=== PATIENT | female | born 1970 | race African-American/Black ===

== ENCOUNTER 2020-04-07 06:44 | Inpatient (IN) | payer OTHER ==
[2020-04-07] VITALS (8 sets, daily range): BP systolic 134–158; BP diastolic 64–93
[~2020-04-07] VITALS: Ht 157.5 cm; Wt 127.5 kg
[2020-04-07 08:14] LABS: ABSOLUTE NEUTROPHILS 4.5 thou/uL (1.4-8.2); BASOPHILS 1.1 % (0.0-2.0); EOSINOPHILS 2.1 % (0.0-3.0); HEMATOCRIT 37.7 % (37.0-47.0); HEMOGLOBIN 12.2 gm/dL (12.0-15.0); LYMPHOCYTES 31.6 % (24.0-44.0); MCH 27.1 pg (26.0-34.0); MCHC 32.4 g/dL (28.0-37.0); MCV 83.7 fL (80.0-100.0); MONOCYTES 7.2 % (1.0-8.0); PLATELET COUNT 269 thou/uL (150-400); RBC 4.51 mil/uL (4.20-5.00); WBC 7.7 thou/uL (4.0-11.0)
[2020-04-07 08:47] LABS: ALBUMIN 2.9 g/dL (3.4-5.0); ANION GAP 9 mmol/L (7-16); BUN 11 mg/dL (7-18); CALCIUM 8.8 mg/dL (8.5-10.1); CHLORIDE 104 mmol/L (98-107); CO2 28 mmol/L (21-32); CREATININE 1.1 mg/dL (0.6-1.0); GLUCOSE 169 mg/dL (74-106); SGOT 12 U/L (15-37); SGPT 9 U/L (30-65); SODIUM 141 mmol/L (136-145); TOTAL BILIRUBIN 0.4 mg/dL (0.2-1.0); TOTAL PROTEIN 7.7 g/dL (6.4-8.2); TROPONIN-I <0.06 ng/mL (<0.06)
[2020-04-07 08:53] LABS: POTASSIUM 2.6 mmol/L (3.5-5.1)
[2020-04-07] MEDS ORDERED: XANAX1 MG PO (10:19)
[2020-04-07] MEDS ORDERED: AMBIEN 10 MG TA10 MG PO (10:19)
[2020-04-07] MEDS ORDERED: CATAPRES-TTS 20.2 MG TRANSDERM (10:20)
[2020-04-07] MEDS ORDERED: AMLODIPINE BESY10 MG PO ×2 (10:20→16:28)
[2020-04-07] MEDS ORDERED: PLAVIX 75 MG TA75 MG PO (10:21)
[2020-04-07] MEDS ORDERED: CARVEDILOL12.5 MG PO (10:21)
[2020-04-07] MEDS ORDERED: HYDRALAZINE HC100 MG PO ×3 (10:21→16:27)
[2020-04-07] MEDS ORDERED: BUSPIRONE HCL10 MG PO (10:22)
--- NOTE | 2020-04-07 11:37 | EKG ---
[facility] [place] [address] ELECTROCARDIOGRAM REPORT Name: ZEHRA OVALLES Room #: 170-2 ADM IN M.R.#: [id number] Admission: 04/07/20 Attend Phys: Gina Joseph MD Discharge: Date of : 74 Report #: [id number] THIS REPORT FOR: cc: FAM - Family physician unknown FAM - Family physician unknown Ezequiel Murrell MD [facility] THIS REPORT FOR: //name// [facility] ED Test Date: 2020-04-07 Test Time: 06:55:24 Pat Name: ZEHRA OVALLES Department: Room: 170 2 Gender: F [employer]: [place] : 1970 Requested By: Gina Joseph Order Number: [id number] MD: Ezequiel Murrell Measurements Intervals [place] Rate: 59 P: 37 KS: 156 QRS: 13 QRSD: 115 T: 10 QT: 416 QTc: 413 Interpretive Statements Sinus rhythm Probable left ventricular hypertrophy Anterior Q waves, possibly due to LVH No previous ECG available for comparison Electronically Signed On 04-07-2020 11:37:05 CDT by Ezequiel Murrell [email or web address] <ELECTRONICALLY SIGNED> By: Ezequiel Murrell MD, FAC 04/07/20 1137 [id number] Ezequiel Murrell MD, [facility] /EPI
[2020-04-07 13:23] LABS: POTASSIUM 3.3 mmol/L (3.5-5.1); TROPONIN-I <0.06 ng/mL (<0.06)
--- NOTE | 2020-04-07 16:23 | NUR ---
REC PT FROM [facility] [employer]. SHE'S A&OX4, C/O PAIN AT BOTH SITES AND HER 'USUAL' CHEST PAIN X 5DAYS, NO INTERVENTIONS DONE PER REPORT, RADIAL BAND, RELEASING 2ML AIR EVERY 15 MINUTES. NORMALLY AMB INDEPENDENTLY, R GROIN WAS ACCESSED X 3 UNSUCCESSFFULY PER REPORT, PT REPORTS SHE WAS SO SCARED DURING THE PROCEDURE. SEE SEPARATE INTERVENTIONS FOR ASSESSMENT. WILL DO ADMISSION AND ENSURE HER USUAL MEDS ARE STARTED. 17:00 OKAY TO BE UP PER CC LAB AND 1800 RADIAL ARM BAND SHOULD BE DONE
[2020-04-07] MEDS ORDERED: HYDROCODON-ACE1 EAC5 PO (16:28)
[2020-04-07] MEDS ORDERED: SPIRONOLACTONE25 MG PO (16:30)
--- NOTE | 2020-04-07 18:42 | NUR ---
PHYSICIANS MAY BE PUTTING IN DUPLICATE ORDERS, COMM W/DR. VASQUEZ SHE SAID CANCEL NPO ORDER. WILL LET PHYSICIANS ORDER WHATEVER IS NEEDED AND ALERT NIGHT RN. PT ALREADY HAD CV-19 TEST TODAY BEFORE PROCEDURE. PT IN [employer] JUST WANTS HER PAIN MEDICATION AND XANAX CONTINUED, COMM X2 TO HOSPITALIST WHO WILL REVIEW MEDICATIONS. KILLIAN HAS OLD BLOOD FROM PRIOR TO ADMISSION TO FLOOR, R GROIN SITE CDI; SHE DID HAVE SOME OLD BLOOD THAT HAD POOLED IN THIGH CREASE AND WHEN SHE FINALLY MOVED, IT MOVED DOWN HER LEG AND MADE HER FEEL IF SHE WAS BLEEDING. ALL WELL. SHE USES CALL LIGHT FOR NEEDS
[2020-04-08 04:44] LABS: ABSOLUTE NEUTROPHILS 3.8 thou/uL (1.4-8.2); BASOPHILS 0.6 % (0.0-2.0); EOSINOPHILS 1.9 % (0.0-3.0); HEMATOCRIT 39.4 % (37.0-47.0); HEMOGLOBIN 12.6 gm/dL (12.0-15.0); LYMPHOCYTES 35.4 % (24.0-44.0); MCH 27.1 pg (26.0-34.0); MCHC 31.9 g/dL (28.0-37.0); PLATELET COUNT 269 thou/uL (150-400); POLYS 56.1 % (36.0-66.0); RBC 4.64 mil/uL (4.20-5.00); RDW 18.3 % (10.5-14.5); WBC 6.8 thou/uL (4.0-11.0)
[2020-04-08 04:45] VITALS: BP 155/91
[2020-04-08 05:23] LABS: ANION GAP 8 mmol/L (7-16); BUN 12 mg/dL (7-18); CALCIUM 8.5 mg/dL (8.5-10.1); CHLORIDE 101 mmol/L (98-107); CHOLESTEROL 213 mg/dL (<200); CO2 29 mmol/L (21-32); CREATININE 1.2 mg/dL (0.6-1.0); GLUCOSE 97 mg/dL (74-106); HDL CHOLESTEROL 38 mg/dL (>40); LDL CHOLESTEROL 152 mg/dL (<100); MAGNESIUM 1.9 mg/dL (1.8-2.4); PHOSPHORUS 2.5 mg/dL (2.5-4.9); SODIUM 138 mmol/L (136-145); TC:HDL 5.6 Ratio (Not establshd); TRIGLYCERIDE 119 mg/dL (<150); VLDL 24 mg/dL (<40)
[2020-04-08 05:25] LABS: SERUM ASSESSMENT Clear
--- NOTE | 2020-04-08 05:43 | NUR ---
PT WITH C/O INCISIONAL PAIN FROM RIGHT GROIN AND WRIST, PRN MEDS GIVEN NEEDED, PT NPO FOR ABD US THIS AM, IV FLUIDS INFUSING IN R UPPER ARM IV, PT UP ADLIB TO BR, WILL CON'T TO MONITOR PER PPOC.
[2020-04-08 09:20] VITALS: BP 140/62
--- NOTE | 2020-04-08 15:06 | NUR ---
AAOX4. PLEASANT. PAIN CONTROL AN ISSUE; DR. VASQUEZ INCREASED HER PAIN MEDICATION. SR/ST WITH OCCASIONAL PAC'S PER TELE. IV SITE CHANGED. FALL PRECAUTIONS IN PLACE.
[2020-04-08 17:00] VITALS: BP 138/71
--- NOTE | 2020-04-08 20:04 | 2DMMODE ---
[facility] [place] [address] 2 D/M-MODE ECHOCARDIOGRAM Name: JAYLON OVALLESN Boaz Room #: 219-P ADM IN ..#: [id number] Admission: 04/07/20 Attend Phys: Gina Joseph MD Discharge: Date of : 74 Report #: [id number] THIS REPORT FOR: cc: FAM - Family physician unknown FAM - Family physician unknown Jason Muhammad MD ~ APPROVED REPORT Study performed: 04/08/2020 16:02:09 EXAM: Comprehensive 2D, Doppler, and color-flow Echocardiogram Patient Location: In-Patient Room #: 219 Status: routine BSA: 2.29 HR: 54 bpm BP: 130/80 mmHg Rhythm: NSR Other Information Study Quality: Technically Limited Risk Factors: Cardiac Risk Factors: HTN Indications Chest Pain 2D Dimensions RVDd: 37.16 mm IVSd: 11.92 (7-11mm) LVOT Diam: 17.99 (18-24mm) LVDd: 44.23 mm PWd: 16.50 (7-11mm) Ascending Ao: 24.40 (22-36mm) LVDs: 19.37 (25-40mm) Left Atrium: 39.29 (27-40mm) Aortic Root: 25.21 mm Volumes Left Atrial Volume (Systole) Single Plane 4CH: 50.47 mL Single Plane 2CH: 67.29 mL Aortic Valve AoV Peak Tim.: 2.25 m/s AO Peak Gr.: 20.18 mmHg [facility] [address] [place] [address] 2 D/M-MODE ECHOCARDIOGRAM Name: OVALLESZEHRA Room #: 219-P [facility] IN [facility].#: [id number] Admission: 04/07/20 Attend Phys: Gina Joseph, Discharge: Date of : 74 Report #: [id number] Mean Gr.: 9.90 mmHg AO V2 Mean: 1.46 m/s AO V2 VTI: 52.99 cm Mitral Valve E/A Ratio: 1.0 MV Decel. Time: 262.18 ms MV E Max Tim.: 1.10 m/s MV A Tim.: 1.05 m/s MV PHT: 76.03 ms Pulmonary Valve WA End Vmax: 1.07 m/s Tricuspid Valve TR Peak Tim.: 3.13 m/s TR Peak Gr.: 39.16 mmHg Left Ventricle The left ventricle is normal size. Mild to moderate concentric left ventricular hypertrophy. The left ventricular systolic function is normal. The left ventricular ejection fraction is within the normal range. LVEF is 60-65%. Right Ventricle The right ventricle is normal size. The right ventricular systolic function is normal. Atria Left atrium is borderline dilated. The right atrium size is normal. Aortic Valve The aortic valve is normal in structure. No aortic regurgitation is present. There is no aortic valvular stenosis. Mitral Valve The mitral valve is normal in structure. Trace to mild mitral regurgitation. No evidence of mitral valve stenosis. Tricuspid Valve The tricuspid valve is normal in structure. Trace tricuspid regurgitation. Estimated PAP 44-49 mmHg. Pulmonic Valve The pulmonary valve is normal in structure. Trace pulmonic [facility] [address] [place] [address] 2 D/M-MODE ECHOCARDIOGRAM Name: ZEHRA OVALLES Room #: 219-P [facility] IN [facility]#: [id number] Admission: 04/07/20 Attend Phys: Gina Joseph, Discharge: Date of : 74 Report #: [id number] regurgitation. Great Vessels The aortic root is normal in size. IVC is normal in size and collapses >50% with inspiration. Pericardium There is no pericardial effusion. <Conclusion> The left ventricle is normal size. LVEF is 60-65%. Left atrium is borderline dilated. The aortic valve is normal in structure. The mitral valve is normal in structure. Trace to mild mitral regurgitation. The tricuspid valve is normal in structure. Trace tricuspid regurgitation. Estimated PAP 44-49 mmHg. The pulmonary valve is normal in structure. Trace pulmonic regurgitation. There is no pericardial effusion. <ELECTRONICALLY SIGNED> By: Jason Muhammad MD 04/08/202003 03 Jagdeep Muhammad MD /INF
[2020-04-08 20:30] VITALS: BP 155/77
--- NOTE | 2020-04-09 03:54 | NUR ---
PT AMBULATING INDEPENDENTLY AND IS TOLERATING WELL. LORTAB PROVIDING PAIN RELIEF. REFUSING PIPIDA SCAN SCHEDULED FOR 04/10. RESTING COMFORTABLY. NO NEEDS VOICED. CALL LIGHT WITHIN REACH. FREQUENT OBSERVATION.
[2020-04-09 05:00] VITALS: BP 132/65
[2020-04-09 08:40] VITALS: BP 156/81
[2020-04-09 12:45] VITALS: BP 131/67
[2020-04-09 12:57] LABS: CALCIUM 8.7 mg/dL (8.5-10.1); CREATININE 0.9 mg/dL (0.6-1.0); POTASSIUM 3.5 mmol/L (3.5-5.1)
[2020-04-09 14:15] LABS: ALBUMIN 3.3 g/dL (3.4-5.0); DIRECT BILIRUBIN < 0.1 mg/dL (<0.1-0.2); SGOT 16 U/L (15-37); SGPT 10 U/L (30-65); TOTAL BILIRUBIN 0.3 mg/dL (0.2-1.0)
[2020-04-09 16:25] VITALS: BP 124/58
[2020-04-09 20:00] VITALS: BP 1302/70
[2020-04-10 03:16] VITALS: BP 148/51
[2020-04-10 08:15] VITALS: BP 153/86
--- NOTE | 2020-04-10 11:03 | NUR ---
RECEIVED PT'S CARE AROUND 729; PT. RESTING WITH EYES CLOSED; SLEEP INTERRUPTED DURING SHIFT CHANGED; ALERT; DURING AM ASSESSMENT AOX4; C/O PAIN OVER R. GROIN INCISION; EDUCATED ABOUT PAIN MANAGEMENT [facility]; NO GRIMACING; RESTING COMFORTABLE ON BED; AM MEDICATIONS GIVEN; EDUCATED ABOUT D/C PROCESS; [facility]; ST. 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; REFUSED BREAKFAST; ASSESSMENT CHARGED; FOLLOWING POC; WAITING D/C ORDERS & WILL D/C;
[2020-04-10] MEDS ORDERED: COZAAR 25 MG TA25 M1 PO (11:38)
[2020-04-10] MEDS ORDERED: NIFEDIPINE ER30 M1 PO (11:38)
[2020-04-10] MEDS ORDERED: ADULT LOW DOSE81 MG PO (11:38)
[2020-04-10 11:45] VITALS: BP 153/86
== END 2020-04-10 12:27 | disposition home or self-care (01) | DRG 313 ==
LOC: ER 06:44 → 2N 09:32 → EROBS 09:32 → 2N 16:19
PROVIDERS: Emergency Medicine; ADMIT Internal Medicine; ATTEND Internal Medicine
DX: R07.89 Other chest pain (principal); Z68.43 Body mass index [BMI] 50.0-59.9, adult; I25.10 Atherosclerotic heart disease of native coronary artery without angina pectoris; I50.9 Heart failure, unspecified; E78.5 Hyperlipidemia, unspecified; E87.6 Hypokalemia; E66.01 Morbid (severe) obesity due to excess calories; I11.0 Hypertensive heart disease with heart failure; Z20.828 Contact with and (suspected) exposure to other viral communicable diseases; Z88.1 Allergy status to other antibiotic agents; Z95.5 Presence of coronary angioplasty implant and graft; Z88.5 Allergy status to narcotic agent; I25.2 Old myocardial infarction; Z88.0 Allergy status to penicillin; Z79.899 Other long term (current) drug therapy
CPT/HCPCS: 10081

== ENCOUNTER 2020-06-24 00:46 | Emergency (ER) | payer OTHER ==
[~2020-06-24] VITALS: Ht 157.5 cm; Wt 127.0 kg
[~2020-06-24 00:46] MED LIST: ADULT LOW DOSE81 MG PO; AMBIEN 10 MG TA10 MG PO; AMLODIPINE BESY10 MG PO; BUSPIRONE HCL10 MG PO; CARVEDILOL12.5 MG PO; CATAPRES-TTS 20.2 MG TRANSDERM; COZAAR 25 MG TA25 M1 PO; HYDRALAZINE HC100 MG PO; HYDROCODON-ACE1 EAC5 PO; NIFEDIPINE ER30 M1 PO; PLAVIX 75 MG TA75 MG PO; SPIRONOLACTONE25 MG PO; XANAX1 MG PO
[2020-06-24 01:15] LABS: URINE BILIRUBIN NEGATIVE (Negative); URINE BLOOD NEGATIVE (Negative); URINE CLARITY CLEAR; URINE COLOR YELLOW; URINE GLUCOSE-RANDOM* NEGATIVE (Negative); URINE KETONES NEGATIVE (Negative); URINE LEUKOCYTES-REFLEX TRACE (Negative); URINE NITRITE-REFLEX NEGATIVE (Negative); URINE PROTEIN (DIPSTICK) TRACE (Negative); URINE SPECIFIC GRAVITY 1.015 (1.005-1.035)
[2020-06-24 01:35] LABS: ABSOLUTE NEUTROPHILS 4.2 thou/uL (1.4-8.2); BASOPHILS 1.4 % (0.0-2.0); EOSINOPHILS 1.9 % (0.0-3.0); HEMATOCRIT 38.3 % (37.0-47.0); HEMOGLOBIN 12.2 gm/dL (12.0-15.0); LYMPHOCYTES 35.6 % (24.0-44.0); MCH 27.5 pg (26.0-34.0); MCHC 31.8 g/dL (28.0-37.0); MCV 86.4 fL (80.0-100.0); PLATELET COUNT 285 thou/uL (150-400); POLYS 55.1 % (36.0-66.0); RBC 4.43 mil/uL (4.20-5.00); RDW 16.6 % (10.5-14.5); WBC 7.6 thou/uL (4.0-11.0)
[2020-06-24 01:42] LABS: ANION GAP 10 mmol/L (7-16); BUN 18 mg/dL (7-18); CALCIUM 9.3 mg/dL (8.5-10.1); CHLORIDE 106 mmol/L (98-107); CO2 30 mmol/L (21-32); CREATININE 1.9 mg/dL (0.6-1.0); GLUCOSE 109 mg/dL (74-106); POTASSIUM 3.3 mmol/L (3.5-5.1); SODIUM 146 mmol/L (136-145)
[2020-06-24 01:52] LABS: ALBUMIN 3.5 g/dL (3.4-5.0); SGOT 11 U/L (15-37); SGPT 16 U/L (14-59); TOTAL BILIRUBIN 0.4 mg/dL (0.2-1.0); TOTAL PROTEIN 8.3 g/dL (6.4-8.2); TROPONIN-I <0.06 ng/mL (<0.06)
[2020-06-24 03:37] VITALS: BP 142/68
--- NOTE | 2020-06-24 11:17 | EKG ---
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[employer] : 1970 Requested By: Salo Blas Order Number: [id number] MD: Ezequiel Murrell Measurements Intervals [place] Rate: 61 P: 40 AR: 153 QRS: 10 QRSD: 107 T: 51 QT: 442 QTc: 446 Interpretive Statements Sinus rhythm Anteroseptal infarct, old Compared to ECG 04/07/2020 06:55:24 Myocardial infarct finding now present Left ventricular hypertrophy no longer present Q waves no longer present Electronically Signed On 06-24-2020 11:17:37 DISK SHARPENER by Ezequiel Murrell [email or web address] <ELECTRONICALLY SIGNED> By: Ezequiel Murrell MD, [facility] 06/24/20 1117 D: 1255 Ezequiel Murrell MD, FACC /EPI
== END 2020-06-24 03:43 | disposition home or self-care (01) ==
LOC: ER 00:46
PROVIDERS: Emergency Medicine
DX: R55 Syncope and collapse (principal); R52 Pain, unspecified; I25.10 Atherosclerotic heart disease of native coronary artery without angina pectoris; I50.9 Heart failure, unspecified; I25.2 Old myocardial infarction; E66.01 Morbid (severe) obesity due to excess calories; F17.210 Nicotine dependence, cigarettes, uncomplicated; Z95.5 Presence of coronary angioplasty implant and graft; Z79.899 Other long term (current) drug therapy; Z79.82 Long term (current) use of aspirin; Z88.1 Allergy status to other antibiotic agents; Z91.013 Allergy to seafood; Z88.6 Allergy status to analgesic agent; Z88.0 Allergy status to penicillin; Z68.43 Body mass index [BMI] 50.0-59.9, adult